=== PATIENT | female | born 1935 | race Caucasian/White ===

== ENCOUNTER 2016-08-17 12:15 | Emergency (ER) | payer MEDICARE, OTHER ==
[2016-08-17 12:29] VITALS: BP 153/82
[2016-08-17] MEDS ORDERED: Sodium Chloride 0.9% 5 ML Syringe FLUSH PRN (12:57)
--- NOTE | 2016-08-17 13:47 | EDM.PDOC ---
ED HISTORY OF PRESENT ILLNESS - General Chief Complaint: Respiratory Problem Stated Complaint: cough Time Seen by Provider: 08/17/16 13:00 Source of Information: Reports: Patient History Limitations: Reports: No limitations - History of Present Illness INITIAL COMMENTS - FREE TEXT/NARRATIVE: PT SEEN IN CLINIC ON AUGUST 15 FOR C/O URI. DIAGNOSED WITH BRONCHITIS AND STARTED ON ZITHRO. PT STATES SYMPTOMS ARE WORSE NOW. DENIES FEVER, N/V/D, CP, OR SOB. Symptom Onset Date: 08/13/16 Timing/Duration: Reports: Day(s): Severity: mild Improves with: Reports: None Worsens with: Reports: None Associated Symptoms (General): Reports: cough, cough w sputum. Denies: chest pain, diaphoresis, fever/chills, nausea/vomiting, shortness of breath - Related Data Allergies/ADRs: Allergies Allergy/AdvReac Type Severity Reaction Status Date / Time morphine Allergy Stomach Verified 08/17/16 12:40 Ache Home Meds: Home Meds Ascorbate Calcium [Vitamin C] 500 mg PO DAILY 08/17/16 [History] Calcium Carbonate/Vitamin D3 [Calcium 600 + Vit D 400 Tablet] 1 each PO DAILY [History] Escitalopram Oxalate 10 mg PO DAILY 08/17/16 [History] Hydrochlorothiazide 12.5 mg PO DAILY 08/17/16 [History] Lisinopril 20 mg PO DAILY 08/17/16 [History] Loratadine [Claritin] 10 mg PO DAILY 08/17/16 [History] Multivitamin [Multi-Day Vitamins] 1 each PO DAILY 08/17/16 [History] Omeprazole 40 mg PO DAILY 08/17/16 [History] Simvastatin [Simvastatin] 10 mg PO DAILY 08/17/16 [History] Social & Family History - Tobacco Use Smoking Status *Q: Former Smoker Years of Tobacco use: 49 Packs/Tins Daily: 1 Used Tobacco, but Quit: Yes Month Tobacco Last Used: September Second Hand Smoke Exposure: No - Caffeine Use Caffeine Use: Reports: Coffee, Soda - Recreational Drug Use Recreational Drug Use: No ED ROS GENERAL - Review of Systems Review Of Systems: ROS reveals no pertinent complaints other than HPI. Constitutional: Reports: no symptoms HEENT: Reports: No symptoms Respiratory: Reports: Cough Cardiovascular: Reports: No symptoms Endocrine: Reports: no symptoms GI/Abdominal: Reports: No symptoms : Reports: no symptoms Musculoskeletal: Reports: no symptoms Skin: Reports: no symptoms Neurological: Reports: No Symptoms Psychiatric: Reports: No symptoms Hematologic/Lymphatic: Reports: no symptoms Immunologic: Reports: no symptoms ED EXAM, GENERAL - Physical Exam Exam: See Below Exam Limited By: No limitations General Appearance: alert, WD/WN, no apparent distress Eye Exam: bilateral eye: normal inspection Nose: normal inspection, no blood, clear rhinorrhea Throat/Mouth: Normal inspection, Normal oropharynx, No airway compromise Head: atraumatic, normocephalic Neck: normal inspection, supple. No: lymphadenopathy (L), lymphadenopathy (R) Respiratory/Chest: no respiratory distress, lungs clear, normal breath sounds, no accessory muscle use, chest non-tender Cardiovascular: regular rate, rhythm, no murmur GI/Abdominal: normal bowel sounds, soft, non tender Back Exam: normal inspection. No: CVA tenderness (L), CVA tenderness (R) Extremities: normal inspection, no pedal edema Neurological: alert, oriented, normal cognition Psychiatric: normal affect, normal mood Skin Exam: Warm, Dry, Intact, Normal color, No rash Lymphatic: no adenopathy Course - Vital Signs Last Recorded V/S: Last Vital Signs Temp 98.6 F 08/17/16 12:24 Pulse 108 H 08/17/16 12:24 Resp 18 08/17/16 12:24 BP 153/82 H 08/17/16 12:24 Pulse Ox 92 L 08/17/16 12:24 - Orders/Labs/Meds Orders: Active Orders 24 hr Category Date Time Status Chest 2V [CR] Stat Exams 08/17/16 12:57 Ordered CBC WITH AUTO DIFF [HEME] Stat Lab 08/17/16 12:57 Ordered COMPREHENSIVE METABOLIC PN,CMP [CHEM] Stat Lab 08/17/16 12:57 Ordered INFLUENZA A+B AG SCREEN [RM] Stat Lab 08/17/16 13:39 Uncollected Sodium Chloride 0.9% [Syrex Flush] Med 08/17/16 12:57 Active 5 ml FLUSH Q8HR PRN Saline Lock Insert [OM.PC] Routine Oth 08/17/16 12:57 Ordered Medication Orders Sodium Chloride (Syrex Flush) 5 ml FLUSH Q8HR PRN PRN Reason: Keep Vein Open Meds: Medications Generic Name Dose Route Start Last Admin Trade Name Freq PRN Reason Stop Dose Admin Sodium Chloride 5 ml 08/17/16 12:57 Syrex Flush FLUSH Q8HR PRN Keep Vein Open - Re-Assessments/Exams Free Text/Narrative Re-Assessment/Exam: 08/17/16 14:40 PT AFEBRILE, NONTOXIC APPEARING, VSS, Departure - Departure Time of Disposition: 14:41 Disposition: Home, Self-Care 01 Condition: good Clinical Impression: Bronchitis Instructions: Upper Respiratory Infection, Adult, [id number], Acute Bronchitis, [id number] Forms: ED Department Discharge Additional Instructions: FOLLOW UP AT CLINIC IF SYMPTOMS CONTINUE - My Orders Last 24 Hours: My Active Orders 08/17/16 12:57 Chest 2V [CR] Stat CBC WITH AUTO DIFF [HEME] Stat COMPREHENSIVE METABOLIC PN,CMP [CHEM] Stat Sodium Chloride 0.9% [Syrex Flush] 5 ml FLUSH Q8HR PRN Saline Lock Insert [OM.PC] Routine 08/17/16 13:39 INFLUENZA A+B AG SCREEN [RM] Stat - Assessment/Plan Last 24 Hours: My Active Orders 08/17/16 12:57 Chest 2V [CR] Stat CBC WITH AUTO DIFF [HEME] Stat COMPREHENSIVE METABOLIC PN,CMP [CHEM] Stat Sodium Chloride 0.9% [Syrex Flush] 5 ml FLUSH Q8HR PRN Saline Lock Insert [OM.PC] Routine 08/17/16 13:39 INFLUENZA A+B AG SCREEN [RM] Stat Assessment:: bronchitis Plan: continue current medication and f/u with pcp in 3 days
== END 2016-08-17 14:50 | disposition home or self-care (01) ==
LOC: KA.ED 12:15
DX: J40 Bronchitis, not specified as acute or chronic (principal); Z88.5 Allergy status to narcotic agent; Z79.899 Other long term (current) drug therapy; Z87.891 Personal history of nicotine dependence
CPT/HCPCS: 36415; 71020; 80053; 85025; 87804; 99282; 99283

== ENCOUNTER 2019-10-27 20:15 | Emergency (ER) | payer MEDICARE, OTHER ==
[2019-10-27 20:28] VITALS: BP 125/42; PULSE 80
[2019-10-27] MEDS ORDERED: Mupirocin Oint 22 GM Tube TOP ONE (20:53)
[2019-10-27] MEDS: Lidocaine/EPINEPHrine/Tetracaine Soln 5 ML Each TOP ONE (21:00)
--- NOTE | 2019-10-27 21:00 | CR ---
[id number] RAD/RAD Foot Left 2V EXAM: 2 VIEWS LEFT FOOT. INDICATION: FALL, 5TH DIGIT PAIN, METATARSAL PAIN COMPARISON: None. DISCUSSION: Acute nondisplaced fracture involving the distal aspect of the 5th metatarsal. Old fracture involving the 2nd metatarsal. Generalized osseous demineralization. Mild degenerative changes seen throughout the left foot. IMPRESSION: 1. Acute nondisplaced fracture involving the distal aspect of the 5th metatarsal. Ihsan Samano DO 10/27/19 0069 Thank you for allowing us to participate in the care of your patient.
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
[2019-10-27] MEDS: Bacitracin Oint 30 GM Tube TOP ONE (22:33)
[2019-10-27] MEDS: Bacitracin/Neomycin/Polymyxin B Oint 0.9 GM U/D Packet ONE (22:33)
[2019-10-27] MEDS: Bacitracin/Neomycin/Polymyxin B Oint 0.9 GM U/D Packet TOP ONE (22:34)
== END 2019-10-27 21:50 | disposition home or self-care (01) ==
LOC: KA.ED 20:15
DX: S92.355A Nondisplaced fracture of fifth metatarsal bone, left foot, initial encounter for closed fracture (principal); S01.81XA Laceration without foreign body of other part of head, initial encounter; I10 Essential (primary) hypertension; E78.00 Pure hypercholesterolemia, unspecified; K21.9 Gastro-esophageal reflux disease without esophagitis; F41.9 Anxiety disorder, unspecified; F31.9 Bipolar disorder, unspecified; Z88.5 Allergy status to narcotic agent; Z79.899 Other long term (current) drug therapy; W01.10XA Fall on same level from slipping, tripping and stumbling with subsequent striking against unspecified object, initial encounter
CPT/HCPCS: 12011; 73620-LT; 99284; 99284-25; A9270-GY

== ENCOUNTER 2021-09-14 17:50 | Emergency (ER) | payer MEDICARE, OTHER, MEDICAID ==
[2021-09-14 19:11] VITALS: BP 156/88; PULSE 77
== END 2021-09-14 19:25 ==
LOC: KA.ED 17:50
DX: S93.411A Sprain of calcaneofibular ligament of right ankle, initial encounter (principal); K21.9 Gastro-esophageal reflux disease without esophagitis; E78.00 Pure hypercholesterolemia, unspecified; I10 Essential (primary) hypertension; Z88.5 Allergy status to narcotic agent; Z79.899 Other long term (current) drug therapy; W18.30XA Fall on same level, unspecified, initial encounter
CPT/HCPCS: 73610-RT; 99283; 99284